=== PATIENT | male | born 1990 | race Caucasian/White ===

== ENCOUNTER 2024-11-10 18:57 | Emergency (ER) | payer OTHER, SELFPAY ==
[2024-11-10 19:14] VITALS: BP 138/90; PULSE 111; RESP 20; TEMP 36.8; O2SAT 98; BMI 27.3
[2024-11-10 20:43] LABS: Hematocrit 43.0 % (37-53); Hemoglobin 14.90 g/dL (11.27-16.99); Mean Corpuscular HGB Conc 34.7 g/dL (30-55); Mean Corpuscular Hemoglobin 31.6 pg (27-33); Mean Corpuscular Volume 91.1 fl (82-101); Nucleated Red Blood Cells % 0 %; Platelet Count 95 10^3/cmm (157-399); Red Blood Count 4.72 10^6/uL (3.85-5.65); White Blood Count 9.32 10^3/uL (3.29-11.43)
[2024-11-10 21:05] LABS: Alanine Aminotransferase 357 U/L (0-41); Albumin Level 4.8 g/dL (3.5-5.2); Alkaline Phosphatase 109 U/L (40-130); Anion Gap 27.2 (5-19); Aspartate Amino Transferase 309 U/L (0-40); Blood Urea Nitrogen 15 mg/dL (6-20); Calcium 9.9 mg/dL (8.5-10.5); Carbon Dioxide 21 mmol/L (22-29); Chloride 93 mmol/L (98-107); Creatinine Clr Calc Pharmacy 116.8153; Globulin 2.9 g/dL (1.3-4.6); Glucose 112 mg/dL (65-115); Osmolality Calculated 286 mOsm/kg (285-295); Potassium 4.2 mmol/L (3.5-5.1); Sodium 137 mmol/L (136-145); Total Protein 7.7 g/dL (6.6-8.7)
[2024-11-10 21:23] LABS: Acetaminophen < 5.0 ug/mL (10-30); Alcohol Level < 10 mg/dL (0-10); Salicylate < 0.3 mg/dL (3-10)
[2024-11-10 21:48] LABS: Glucose Urine UA Negative (Normal); Nitrate Urine Negative (Negative); Specific Gravity, Urine 1.024 (1.005-1.030)
[2024-11-10 21:53] LABS: Add Urine Microscopic? YES
--- NOTE | 2024-11-10 21:56 | ECG_ITS ---
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 Measurements Intervals [place] Rate: 73 P: 72 LA: 114 QRS: 83 QRSD: 86 T: 74 QT: 389 QTc: 430 Interpretive Statements SINUS RHYTHM WITH SHORT LA INTERVAL No previous ECG available for comparison Electronically Signed On 11-11-2024 20:24:36 CDT by Rancho Merino M.D. [id number]
--- NOTE | 2024-11-10 22:37 | W.ED.ALCOHOL ---
HPI - Alcohol General: Chief Complaint: Alcohol Stated Complaint: shaky weak cant keep water down Time Seen by Provider: 11/10/24 22:12 History of Present Illness: Patient is a 34-year-old gentleman presented to the ED with uncontrolled nausea, vomiting, and tremors. 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 Since he has returned home, he has been drinking nonstop Junior 1/5 x 1 bottle and sometimes 2 daily for the last 2 weeks. His last drink was yesterday. Now, he is uncontrollably vomiting, and cannot keep water down with association of tremors. Last drink: Days (ago) (1) Associated symptoms: Reports abdominal pain, nausea and vomiting; Deny depression Related Data Previous Rx's ?Medication ?Instructions ?Recorded ondansetron 4 mg disintegrating 4 mg PO Q8H PRN nausea and 11/11/24 tablet vomiting 4 days #14 tabs Allergies Allergy/AdvReac Type Severity Reaction Status Date / Time No Known Allergies Allergy Verified 11/10/24 19:20 Review of Systems General: Reports: 10 or more systems reviewed and unremarkable except in HPI and below Const: Denies: fever(s) or chills Eyes: Denies: change in vision or blurry vision ENMT: Denies: throat pain or mouth pain Card: Reports: palpitations; Denies: chest pain Resp: Denies: dyspnea or non-productive cough GI: Reports: abdominal pain, nausea, vomiting and change in stool character : Denies: flank pain or difficulty urinating Musc: Denies: neck pain, back pain or extremity pain Skin/Breast: Denies: rash or pruritus Neuro: Denies: headache(s) or numbness in extremities Psych: Denies: anxiety or depression Physical Exam Const: COMMON NORMALS: patient oriented x3 and alert Neck/C-Spine: COMMON NORMALS: no meningeal signs GI: COMMON NORMALS: Normal to inspection, nondistended, normoactive bowel sounds present and Soft to palpation PALPATION: Yes Soft to palpation : COMMON NORMALS: Yes no CVA tenderness BLADDER/KIDNEY EXAM: Yes no CVA tenderness Back/Pelvis: COMMON NORMALS: no CVA tenderness Extremity: COMMON NORMALS: normal to inspection, full ROM and capillary refill normal Neuro: COMMON NORMALS: patient oriented x3, CN's II-XII intact bilaterally, moves all extremities and deep tendon reflexes 2+ bilaterally SENSORIUM/ORIENTATION: Yes alert MENINGEAL SIGNS: Yes no meningeal signs COORDINATION/BALANCE: ynzexg-lh-uoay test normal and yfwq-gs-cjbj test normal MOTOR EXAM: 5/5 motor strength present throughout, Pronator motor function not present, no asterixis, Asterixis during motor activity present and Motor fasciculations present involving the distal upper extremity COORDINATION: fyzwiy-ey-qsqt test normal and wcws-nz-tvik test normal Psych: COMMON NORMALS: mental status grossly normal Skin: COMMON NORMALS: no rashes or lesions noted and no wounds GENERAL SKIN EXAM: no rashes or lesions noted Course Reevaluation(s): Reevaluation #1: No more nausea and vomiting. Less shaking. Vital Signs: Vital signs: Vital Signs Temperature 98.2 F 11/10/24 19:14 Pulse Rate 92 11/11/24 00:00 Respiratory Rate 16 11/11/24 00:00 Blood Pressure 143/98 11/11/24 00:00 Pulse Oximetry 99 11/11/24 00:00 Oxygen Delivery Me thod Room Air 11/11/24 00:00 MDM - Alcohol Medical Decision Making Patient is a 34-year-old male typically na?ve to alcohol intake, that has been consuming 1-2 bottles of 1/5 of whiskey/Junior daily while on break. This has been occurring as a binge drinking in the last 2 weeks. Last alcohol consumption was yesterday. This a.m. patient started having ongoing nausea, and vomiting, as well as tremors. Symptoms/physical examination is consistent with alcohol withdrawal. Discussed with patient. Will give IV fluids, Zofran, Ativan, and thiamine. Patient's questions answered to his satisfaction. I did discuss with patient possibly admitting overnight with fluids, Ativan. He does have a significant response to the 1 Ativan he has received. He would like to go home, medicine himself when he needs it, and [facility]. He states he has no desire to drink. He is somewhat of an anomaly as far as current issues with alcohol withdrawal for binge drinking for the last 2 weeks. All of his questions answered to his satisfaction. Lab Data I reviewed the patient's lab results. 11/10/24 20:17 11/10/24 20:17 Laboratory Results WBC 9.32 10^3/uL (3.29-11.43) 11/10/24 20:17 RBC 4.72 10^6/uL (3.85-5.65) 11/10/24 20:17 Hgb 14.90 g/dL (11.27-16.99) 11/10/24 20:17 Hct 43.0 % (37-53) 11/10/24 20:17 MCV 91.1 fl (82-101) 11/10/24 20:17 MCH 31.6 pg (27-33) 11/10/24 20: MCHC 34.7 g/dL (30-55) 11/10/24 20:17 RDW 13.1 % (12.1-15.1) 11/10/24 20:17 Plt Count 95 10^3/cmm (157-399) L 11/10/24 20:17 MPV 10.4 fL (7.4-10.4) 11/10/24 20:17 Neut % (Auto) 85.3 % 11/10/24 20:17 Lymph % (Auto) 6.1 % 11/10/24 20:17 [place] % (Auto) 8.0 % 11/10/24 20:17 Eos % (Auto) 0.0 % 11/10/24 20:17 Baso % (Auto) 0.4 % 11/10/24 20:17 Neut # (Auto) 7.94 10^3/uL (1.8-7.7) H 11/10/24 20:17 Lymph # (Auto) 0.6 10^3/uL (0.8-4.8) L 11/10/24 20:17 [place] # (Auto) 0.8 10^3/uL (0.2-0.9) 11/10/24 20:17 Eos # (Auto) 0.0 10^3/uL (0.0-0.8) 11/10/24 20:17 Baso # (Auto) 0.0 10^3/uL (0.0-0.1) 11/10/24 20:17 Nucleated RBC % (auto) 0 % 11/10/24 20:17 Nucleated RBCs # 0.0 /100WBC 11/10/24 20:17 Sodium 137 mmol/L (136-145) 11/10/24 20:17 Potassium 4.2 mmol/L (3.5-5.1) 11/10/24 20:17 Chloride 93 mmol/L (98-107) L 11/10/24 20:17 Carbon Dioxide 21 mmol/L (22-29) L 11/10/24 20:17 Anion Gap 27.2 (5-19) H 11/10/24 20:17 BUN 15 mg/dL (6-20) 11/10/24 20:17 Creatinine 0.9 mg/dL (0.7-1.2) 11/10/24 20:17 GFR Calculation 96.6 mL/min (90-130) 11/10/24 20:17 Glucose 112 mg/dL (65-115) 11/10/24 20:17 Calculated Osmolality 286 mOsm/kg (285-295) 11/10/24 20:17 Calcium 9.9 mg/dL (8.5-10.5) 11/10/24 20:17 Magnesium 1.5 mg/dL (1.7-2.3) L 11/10/24 20:17 Total Bilirubin 1.7 mg/dL (0.15-1.2) H 11/10/24 20:17 AST 309 U/L (0-40) H 11/10/24 20:17 ALT 357 U/L (0-41) H 11/10/24 20:17 Alkaline Phosphatase 109 U/L (40-130) 11/10/24 20:17 Total Protein 7.7 g/dL (6.6-8.7) 11/10/24 20:17 Albumin 4.8 g/dL (3.5-5.2) 11/10/24 20:17 Globulin 2.9 g/dL (1.3-4.6) 11/10/24 20:17 Urine Color [place] (Yellow) A 11/10/24 21:36 Urine Appearance Clear (CLEAR) 11/10/24 21:36 Urine pH 5.5 (5-7) 11/10/24 21:36 Ur Specific [place] 1.024 (1.005-1.030) 11/10/24 21:36 Urine Protein 2+ (Negative) A 11/10/24 21:36 Urine Glucose (UA) Negative (Normal) 11/10/24 21:36 Urine Ketones 4+ (Negative) 11/10/24 21:36 Urine Blood Trace (Negative) A 11/10/24 21:36 Urine Nitrate Negative (Negative) 11/10/24 21:36 Urine Bilirubin Negative (Negative) 11/10/24 21:36 Urine Urobilinogen 1.0 mg/dL (Negative) 11/10/24 21:36 Ur Leukocyte Esterase Negative (Negative) 11/10/24 21:36 Urine RBC 0-2 /hpf (0-2) 11/10/24 21:36 Urine WBC 0-5 /hpf (0-5) 11/10/24 21:36 Ur Squamous Epith Cells 0-5 /hpf (0-5) 11/10/24 21:36 Amorphous Sediment Not Reportable 11/10/24 21:36 Urine Bacteria None seen /hpf (NONE) 11/10/24 21:36 Hyaline Casts 2.46 /lpf 11/10/24 21:36 Salicylates < 0.3 mg/dL (3-10) L 11/10/24 20:17 Urine Opiates Screen Negative ng/mL (Negative) 11/10/24 21:36 Acetaminophen < 5.0 ug/mL (10-30) L 11/10/24 20:17 Ur Barbiturates Screen Negative ng/mL (Negative) 11/10/24 21:36 Ur Phencyclidine Scrn Negative ng/mL (Negative) 11/10/24 21:36 Ur Amphetamines Screen Negative ng/mL (Negative) 11/10/24 21:36 U Benzodiazepines Scrn Negative ng/mL (Negative) 11/10/24 21:36 Urine Cocaine Screen Negative ng/mL (Negative) 11/10/24 21:36 U Marijuana (THC) Screen Negative ng/mL (Negative) 11/10/24 21:36 Ethyl Alcohol < 10 mg/dL (0-10) 11/10/24 20:17 No radiology studies performed this visit EKG Data EKG 1: Interpretation: Normal sinus rhythm, LVH, QTc 430 Discharge Plan Discharge Patient Disposition: Home Clinical Impression: Alcohol withdrawal syndrome, Abnormal transaminases, Thrombocytopenia Condition: Stable Prescriptions: New ondansetron 4 mg tablet,disintegrating 4 mg PO Q8H PRN (Reason: nausea and vomiting) 4 Days Qty: 14 0RF Discharge Orders: Discharge ED (Routine); Ordered 11/11/24 Ordered By: Elsy Suárez Discharge Diet: Clear Liquid Patient Instructions: Clear Liquid Diet (ED), Acute Delirium (ED), Patient Portal & Kt Instructions Activity Restrictions/Additional Instructions: - [facility] - Do not consume any more alcohol - Clear liquid diet until you no longer have nausea or vomiting - Return to ED with worsening symptoms of shaking, or if you start having hallucinations, nausea and vomiting. - Your Zofran for nausea and vomiting was sent to the pharmacy. Do not take this more than 3 times a day. If you continue to have nausea despite taking this up to 3 times a day, return to the emergency room for further evaluation. - You will need a follow-up on your liver. [facility] with [facility] concern. - Your hepatitis panel is still pending; although current symptoms as we discussed are more consistent with your recent binge drinking. - You will need to obtain thiamine which is also called B1 [id number] in the vitamin section. A multivitamin will help as well with the fat loss we lose in our brains away over drink alcohol. Folic acid, if you tolerate it is helpful as well. These are all recommended by standard of care. Print Language: Estonian Coding Level of Care Code ED [employer] Shop [employer] for Asael Horton
[2024-11-10] MEDS: ondansetron 2 mg/ML SDV 2 mL 4 MG IVP (22:46)
[2024-11-10] MEDS: LORazepam 1 MG/0.5 ML injection 2 MG IVP (22:46)
[2024-11-10 22:53] VITALS: BP 130/86; PULSE 97; RESP 18; O2SAT 99
[2024-11-10] MEDS: thiamine 100 mg/mL 2mL SDV IVP (23:19)
[2024-11-10 23:31] VITALS: BP 143/98; PULSE 94; RESP 16; O2SAT 100
[2024-11-10 23:52] LABS: Magnesium 1.5 mg/dL (1.7-2.3)
[2024-11-10 23:52] LABS: PCP Screen Urine Negative (Negative)
[2024-11-11] VITALS: BP 143/98; PULSE 92; RESP 16; O2SAT 99
[2024-11-11] MEDS: LORazepam 1 MG/0.5 ML injection 2 MG IVP (00:24)
[2024-11-11 00:41] LABS: Hepatitis A Antibody IgM Non-Reactive (Nonreactive); Hepatitis B Surface Antigen Non-Reactive (Nonreactive)
[2024-11-11 01:00] VITALS: BP 137/79; PULSE 111; O2SAT 96
== END 2024-11-11 00:58 | disposition home or self-care (01) ==
PROVIDERS: Emergency Medicine; Emergency Provider Physician Assistant
DX: F10.239 Alcohol dependence with withdrawal, unspecified (principal); D69.6 Thrombocytopenia, unspecified; R74.01 Elevation of levels of liver transaminase levels
CPT/HCPCS: 36415; 80053; 80074; 80306; 80307; 81001; 83735; 85025; 93005; 96361; 96374; 96375; 96376; 99284; J2060; J2405; J3411; J7120